=== PATIENT | male | born 1960 | race African-American/Black ===

== ENCOUNTER 2023-07-04 15:11 | Observation (INO) | payer OTHER ==
--- NOTE | 2023-07-04 15:46 | ED ---
General Adult HPI - General Source: patient, RN notes reviewed Mode of arrival: ambulatory Limitations: no limitations <Yordan Pierre - Last Filed: 07/04/23 15:42> - General Source: patient, RN notes reviewed Mode of arrival: ambulatory Limitations: no limitations <Camille Scott - Last Filed: 07/04/23 20:33> - General Stated complaint: renal faliure Time Seen by Provider: 07/04/23 15:42 - History of Present Illness Initial comments: 63-year-old male presents emergency Department with chief complaint leg swelling. Patient was sent in from [place]. Patient states that he has had this happen the past. He denies any chest pain but does have some shortness of breath. Patient denies any prior kidney issues or known congestive heart failure (Yordan Pierre) 63-year-old male presents to the emergency department for chief complaint of lower extremity edema. He states that this is been going on for the past 3 days but this is not the first time that he has experienced this. He was sent in from [place] for evaluation. He states that he was recently diagnosed with a right-sided lung mass but he has not been able to follow-up on this yet. He admits to shortness of breath with cough. He denies fever. Admits to night sweats. (Camille Scott) - Related Data Home Medications Medication Instructions Recorded Confirmed Acetaminophen Tab [Tylenol] 650 mg PO QID PRN 07/04/23 07/04/23 Chlorpheniramine Maleate 4 mg PO Q4H PRN 07/04/23 07/04/23 [Chlor-Trimeton] Cholecalciferol [Vitamin D3 (25 50 mcg PO DAILY@61407/04/23 07/04/23 Mcg = 1000 Iu)] Ferrous Sulfate [Feosol] 325 mg PO DAILY@61407/04/23 07/04/23 Loratadine [Claritin] 10 mg PO DAILY@61407/04/23 07/04/23 Losartan Potassium 100 mg PO DAILY@61407/04/23 07/04/23 OXcarbazepine [Trileptal] 150 mg PO BID@06,2100 07/04/23 07/04/23 Omeprazole 20 mg PO DAILY@61407/04/23 07/04/23 Sertraline [Zoloft] 50 mg PO DAILY@0615 07/04/23 07/04/23 Sertraline [Zoloft] 100 mg PO DAILY@0615 07/04/23 07/04/23 guaiFENesin [guaiFENesin Oral 200 mg PO Q4H PRN 07/04/23 07/04/23 Solution] hydroCHLOROthiazide [Hydrodiuril] 25 mg PO DAILY@0615 07/04/23 07/04/23 Allergies Allergy/AdvReac Type Severity Reaction Status Date / Time No Known Allergies Allergy Verified 07/04/23 19:41 Review of Systems ROS Other: All systems not noted in ROS Statement are negative. <Yordan Pierre - Last Filed: 07/04/23 15:42> ROS Other: All systems not noted in ROS Statement are negative. <Camille Scott - Last Filed: 07/04/23 20:33> ROS Statement: Those systems with pertinent positive or pertinent negative responses have been documented in the HPI. General Exam <Yordan Pierre - Last Filed: 07/04/23 15:42> Limitations: no limitations General appearance: alert, in no apparent distress Head exam: Present: atraumatic, normocephalic, normal inspection Eye exam: Present: normal appearance, PERRL, EOMI. Absent: scleral icterus, conjunctival injection, periorbital swelling <Camille Scott - Last Filed: 07/04/23 20:33> - General Exam Comments Initial Comments: Visual Physical Exam Vital signs reviewed General: Well-appearing, nontoxic, no acute distress. Head: Normocephalic, atraumatic Eyes: PERRLA, EOMI ENT: Airway patent Chest: Nonlabored breathing Skin: No visual rash, normal skin tone Neuro: Alert and oriented 3 Musculoskeletal: No gross abnormalities (Yordan Pierre) Course Vital Signs 07/04/23 15:48 Temperature 97.9 F Pulse Rate 67 Respiratory 16 Rate Blood Pressure 153/76 O2 Sat by Pulse 100 Oximetry Medical Decision Making <Yordan Pierre - Last Filed: 07/04/23 15:42> - Lab Data Result diagrams: 07/04/23 17:35 07/04/23 17:35 <Camille Scott - Last Filed: 07/04/23 20:33> - Medical Decision Making I completed the quick note portion of this chart signed Yordan Pierre PA-C (Yordan Pierre) Was pt. sent in by a medical professional or institution (SA[employer] Stuart, C[employer]TING TABLE [employer]ATOR [employer], urgent care, hospital, or group home...) When possible be specific @ -No Did you speak to anyone other than the patient for history (EMS, parent, family, police, friend...)? What history was obtained from this source @ -No Did you review nursing and triage notes (agree or disagree)? Why? @ -I reviewed and agree with nursing and triage notes Were old charts reviewed (outside hosp., previous admission, EMS record, old EKG, old radiological studies, urgent care reports/EKG's, group home records)? Report findings @ -No old charts were reviewed Differential Diagnosis (chest pain, altered mental status, abdominal pain women, abdominal pain men, vaginal bleeding, weakness, fever, dyspnea, syncope, headache, dizziness, GI bleed, back pain, seizure, CVA, palpatations, mental health, musculoskeletal)? @ -Differential Dyspnea: Coronary syndrome, arrhythmia, tamponade, asthma, COPD, pulmonary embolism, pneumonia, pneumothorax, pulmonary effusion, anaphylaxis, diabetic ketoacidosis, flailed chest, pulmonary contusion, diaphragmatic rupture, anemia, neuromuscular, this is not meant to be an all-inclusive list. EKG interpreted by me (3pts min.). @ -EKG at 1719 shows sinus rhythm rate 61, CT 161, QRS 89, QTQTc [id number] X-rays interpreted by me (1pt min.). @ -Chest x-ray shows right upper lobe mass measuring [address] interpreted by me (1pt min.). @ -None done U/S interpreted by me (1pt. min.). @ -None done What testing was considered but not performed or refused? (CT, X-rays, U/S, labs)? Why? @ -None What meds were considered but not given or refused? Why? @ -None Did you discuss the management of the patient with other professionals (professionals i.e. SAY Stuart, [employer]TING [employer], lab, RT, psych nurse, psychosocial rehabilitation counselor, motorcycle assembler, teacher, officer lieutenant, oil field caser)? Give summary @ -Dr. Rios discuss the case with discussed the case with Janet Ortega with [facility] who is accepting of the admission Was smoking cessation discussed for >3mins.? @ -No Was critical care preformed (if so, how long)? @ -No Were there social determinants of health that impacted care today? How? (Homelessness, low income, unemployed, alcoholism, drug addiction, transportation, low edu. Level, literacy, decrease access to med. care, [facility], rehab)? @ -No Was there de-escalation of care discussed even if they declined (Discuss DNR or withdrawal of care, Hospice)? DNR status @ -No What co-morbidities impacted this encounter? (DM, HTN, Smoking, COPD, CAD, Canc er, CVA, ARF, Chemo, Hep., AIDS, mental health diagnosis, sleep apnea, morbid obesity)? @ -None Was patient admitted / discharged? Hospital course, mention meds given and route, prescriptions, significant lab abnormalities, going to OR and other pertinent info. @ -Admitted. Patient presented to the emergency department with chief complaint of lower extremity edema. Patient was sent in by [place] for evaluation. Patient has a lung mass which she is aware of but has not had any follow-up on. Laboratory studies obtained which showed WBC 5.8, hemoglobin 9.9; CMP shows sodium 134, potassium 4.5, creatinine 0.59, troponin negative, BNP 233. Chest x-ray obtained which shows 8 cm right upper lobe mass. Patient has not had follow-up on this. Patient will be admitted for further workup. Patient is understanding and agreeable with plan. Case discussed with [facility] hospitalist who is accepting of the admission. Case discussed with Dr. Rios. Undiagnosed new problem with uncertain prognosis? @ -No Drug Therapy requiring intensive monitoring for toxicity (Heparin, Nitro, Insulin, Cardizem)? @ -No Were any procedures done? @ -No Diagnosis/symptom? @ -Right lung mass Acute, or Chronic, or Acute on Chronic? @ -Acute Uncomplicated (without systemic symptoms) or Complicated (systemic symptoms)? @ -Uncomplicated Side effects of treatment? @ -No Exacerbation, Progression, or Severe Exacerbation? @ -No Poses a threat to life or bodily function? How? (Chest pain, [place], [place], pneumonia, PE, COPD, DKA, ARF, appy, cholecystitis, CVA, Diverticulitis, Homicidal, Suicidal, threat to staff... and all critical care pts) @ -No ([email or web address]) - Lab Data Lab Results 07/04/23 07/04/23 07/04/23 Range/Units 17:35 17:35 18:37 WBC 5.8 (3.8-10.6) k/uL RBC 3.64 L (4.30-5.90) m/uL Hgb 9.9 L (13.0-17.5) gm/dL Hct 30.2 L (39.0-53.0) % MCV 82.8 (80.0-100.0) fL MCH 27.1 (25.0-35.0) pg MCHC 32.8 (31.0-37.0) g/dL RDW 16.1 H (11.5-15.5) % Plt Count 445 (150-450) k/uL MPV 6.7 Neutrophils % 65 % Lymphocytes % 21 % Monocytes % 7 % Eosinophils % 2 % Basophils % 0 % Neutrophils # 3.8 (1.3-7.7) k/uL Lymphocytes # 1.2 (1.0-4.8) k/uL Monocytes # 0.4 (0-1.0) k/uL Eosinophils # 0.1 (0-0.7) k/uL Basophils # 0.0 (0-0.2) k/uL Hypochromasia Slight Anisocytosis Slight PT (10.0-12.5) sec INR (<1.2) APTT (22.0-30.0) sec Sodium 134 L (137-145) mmol/L Potassium 4.5 (3.5-5.1) mmol/L Chloride 98 (98-107) mmol/L Carbon Dioxide 26 (22-30) mmol/L Anion Gap 10 mmol/L BUN 15 (9-20) mg/dL Creatinine 0.59 L (0.66-1.25) mg/dL Est GFR (CKD-EPI)AfAm >90 (>60 ml/min/1.73 sqM) Est GFR (CKD-EPI)NonAf >90 (>60 ml/min/1.73 sqM) Glucose 99 (74-99) mg/dL Calcium 9.5 (8.4-10.2) mg/dL Magnesium 1.9 (1.6-2.3) mg/dL Total Bilirubin 0.3 (0.2-1.3) mg/dL AST 18 (17-59) U/L ALT 9 (4-49) U/L Alkaline Phosphatase 109 (38-126) U/L Troponin I <0.012 (0.000-0.034) ng/mL NT-Pro-B Natriuret Pep 233 pg/mL Total Protein 7.0 (6.3-8.2) g/dL Albumin 3.6 (3.5-5.0) g/dL 07/04/23 Range/Units 19:24 WBC (3.8-10.6) k/uL RBC (4.30-5.90) m/uL Hgb (13.0-17.5) gm/dL Hct (39.0-53.0) % MCV (80.0-100.0) fL MCH (25.0-35.0) pg MCHC (31.0-37.0) g/dL RDW (11.5-15.5) % Plt Count (150-450) k/uL MPV Neutrophils % % Lymphocytes % % Monocytes % % Eosinophils % % Basophils % % Neutrophils # (1.3-7.7) k/uL Lymphocytes # (1.0-4.8) k/uL Monocytes # (0-1.0) k/uL Eosinophils # (0-0.7) k/uL Basophils # (0-0.2) k/uL Hypochromasia Anisocytosis PT 10.7 (10.0-12.5) sec INR 1.0 (<1.2) APTT 19.2 L (22.0-30.0) sec Sodium (137-145) mmol/L Potassium (3.5-5.1) mmol/L Chloride (98-107) mmol/L Carbon Dioxide (22-30) mmol/L Anion Gap mmol/L BUN (9-20) mg/dL Creatinine (0.66-1.25) mg/dL Est GFR (CKD-EPI)AfAm (>60 ml/min/1.73 sqM) Est GFR (CKD-EPI)NonAf (>60 ml/min/1.73 sqM) Glucose (74-99) mg/dL Calcium (8.4-10.2) mg/dL Magnesium (1.6-2.3) mg/dL Total Bilirubin (0.2-1.3) mg/dL AST (17-59) U/L ALT (4-49) U/L Alkaline Phosphatase (38-126) U/L Troponin I (0.000-0.034) ng/mL NT-Pro-B Natriuret Pep pg/mL Total Protein (6.3-8.2) g/dL Albumin (3.5-5.0) g/dL Disposition <Yordan Pierre - Last Filed: 07/04/23 15:42> Is patient prescribed a controlled substance at d/c from ED?: No <Camille Scott - Last Filed: 07/04/23 20:33> Clinical Impression: Mass of upper lobe of right lung, Lower extremity edema Disposition: ADMITTED IP TO THIS HOSP Condition: Stable Referrals: None,Stated [Primary Care Provider] - 1-2 days
[2023-07-04 17:49] LABS: Anisocytosis Slight; Basophils % (A) 0 %; Eosinophils # (A) 0.1 k/uL (0-0.7); Eosinophils % (A) 2 %; HCT 30.2 % (39.0-53.0); HGB 9.9 gm/dL (13.0-17.5); Hypochromasia Slight; Lymphocytes # (A) 1.2 k/uL (1.0-4.8); Lymphocytes % (A) 21 %; MCH 27.1 pg (25.0-35.0); MCHC 32.8 g/dL (31.0-37.0); MCV 82.8 fL (80.0-100.0); Mean Platelet Volume 6.7; Monocytes # (A) 0.4 k/uL (0-1.0); Monocytes % (A) 7 %; Neutrophils # (A) 3.8 k/uL (1.3-7.7); Neutrophils % (A) 65 %; Platelet Count 445 k/uL (150-450); RBC 3.64 m/uL (4.30-5.90); RDW 16.1 % (11.5-15.5); WBC 5.8 k/uL (3.8-10.6)
--- NOTE | 2023-07-04 18:01 | XR ---
EXAMINATION: XR chest 2V: 07/04/2023 5:43 PM CLINICAL INDICATION: sob TECHNIQUE: Departmental protocol COMPARISON: None FINDINGS: There is a 8 cm RUL mass abutting the superior mediastinum, consistent with bronchogenic carcinoma un til proven otherwise. There is no midline shift of structures. Recommend CT chest with IV contrast. There are no other lung parenchymal findings. Pleural spaces are negative. The cardiac silhouette is not enlarged; remainder of the hilar/mediastinal silhouette is unremarkable . The skeletal structures and soft tissues are negative for acute findings. Covering ED clinician notified of results via phone discussion just now, in order to help expedite ma [facility] decision making. IMPRESSION: 8 cm RUL mass consistent with bronchogenic carcinoma until proven otherwise.
[2023-07-04 18:02] LABS: ALT 9 U/L (4-49); AST 18 U/L (17-59); African American GFR (CKD) >90 (>60 ml/min/1.73 sqM); Albumin 3.6 g/dL (3.5-5.0); Alkaline Phosphatase 109 U/L (38-126); Anion Gap 10 mmol/L; Blood Urea Nitrogen 15 mg/dL (9-20); Calcium 9.5 mg/dL (8.4-10.2); Carbon Dioxide 26 mmol/L (22-30); Chloride 98 mmol/L (98-107); Glucose 99 mg/dL (74-99); Magnesium 1.9 mg/dL (1.6-2.3); Non-African American GFR(CKD) >90 (>60 ml/min/1.73 sqM); Potassium 4.5 mmol/L (3.5-5.1); Sodium 134 mmol/L (137-145); Total Bilirubin 0.3 mg/dL (0.2-1.3)
[2023-07-04 18:09] LABS: NT-Pro-B-Type Natriuretic Pept 233 pg/mL
[2023-07-04 20:09] LABS: Prothrombin Time 10.7 sec (10.0-12.5)
[2023-07-04 20:16] LABS: Partial Thromboplastin Time 19.2 sec (22.0-30.0)
[2023-07-04] MEDS ORDERED: KETOROLAC 15 MG/ML 1 ML VIAL IVP PRN (20:21)
[2023-07-04] MEDS ORDERED: ACETAMINOPHEN TAB 325 MG TAB PO PRN (20:21)
[2023-07-04] MEDS ORDERED: NALOXONE 0.4 MG/ML 1 ML VIAL IV PRN (20:21)
[2023-07-04] MEDS ORDERED: IBUPROFEN 400 MG TAB PO PRN (20:21)
[2023-07-04] MEDS ORDERED: SODIUM CHLORIDE 0.9% 1,000 ML IV SCH (20:30)
[2023-07-04] MEDS: SODIUM CHLORIDE 0.9% 1,000 ML IV SCH (21:12)
[2023-07-05 04:35] VITALS: TEMP 98.2
[2023-07-05] MEDS ORDERED: guaiFENesin SYRUP 100MG/5ML 200 MG/10 ML CUP PO PRN (06:36)
[2023-07-05] MEDS ORDERED: diphenhydrAMINE 25 MG CAP PO PRN (06:36)
[2023-07-05] MEDS ORDERED: SERTRALINE 100 MG TAB PO SCH (06:59)
[2023-07-05] MEDS ORDERED: SERTRALINE 50 MG TAB PO SCH (06:59)
[2023-07-05] MEDS ORDERED: OXcarbazepine 150 MG TAB PO SCH (06:59)
[2023-07-05 09:27] VITALS: RESP 18
--- NOTE | 2023-07-05 10:18 | CT ---
EXAMINATION: CT CHEST, ABDOMEN AND PELVIS WITH IV CONTRAST DATE OF EXAMINATION: 07/05/2023. COMPARISON: Chest x-ray on 07/04/2023. INDICATION: Lung mass. Malignancy suspected. PROCEDURE: Axial CT of the chest, abdomen and pelvis was performed following the intravenous adminis tration of 100 ml Isovue 300. Coronal and sagittal reformats were performed. CT dose lowering techni ques were used, to include: automated exposure control, adjustment for patient size, and/or use of it erative reconstruction. FINDINGS: CHEST: Mediastinum and Caitie: Right upper lobe mass will be described in the lungs section as it does extend into the upper mediastinum. Pleural and Pericardial spaces: There are no pleural or pericardial effusions. Cardiovascular: The thoracic aorta is normal in size without evidence of aneurysm or dissection. Mild patchy coronary artery calcifications are seen. Pulmonary Artery: There are no central pulmonary arterial filling defects. Lung Parenchyma and Airways: There is a large irregular right upper lobe mass measuring 8.2 x 6.9 cm that extends into the upper mediastinum and abuts the right paratracheal region. There is subpleural reticulation seen within the posterior dependent lung bases which is likely atelectasis. The lungs ot herwise appear clear. ABDOMEN: Liver and Biliary system: Normal. Adrenal glands: 2.7 cm left adrenal nodule suspicious for metastasis. The right adrenal is unremarka ble. Kidneys and ureters: Normal. Spleen: Normal. Pancreas: Normal. Gallbladder: Normal. Lymph nodes, Peritoneum and mesentery: There is no mesenteric or retroperitoneal lymphadenopathy. Gastrointestinal tract: There are no dilated loops of bowel or free intraperitoneal air. . The appe ndix is normal. Aorta/IVC: There is moderate vascular calcification throughout the abdominal aorta without evidence of aneurysmal dilation or dissection. IVC normal. Abdominal wall: Normal. PELVIS: Fluid: There is a small amount of pelvic ascites Lymph Nodes: There is no pelvic or inguinal lymphadenopathy.. Urinary bladder: Normal. BONES: There are no osseous destructive lesions.. ADDITIONAL SIGNIFICANT FINDINGS: None. IMPRESSION: 1. Large right upper lobe mass ane suprahilar mass with extension into the mediastinum as above is co mpatible with malignancy. 2. Left adrenal nodule is suspicious for a metastasis. 3. Small amount of pelvic ascites. 4. Additional incidental changes noted above.
[2023-07-05] MEDS: SODIUM CHLORIDE 0.9% 1,000 ML IV SCH (11:22)
--- NOTE | 2023-07-05 12:10 | P.HPIM ---
History of Present Illness H&P Date: 07/05/23 Chief Complaint: Bilateral leg edema * 63-year-old gentleman with past medical history significant for depression, iron deficiency anemia, hypertension who was sent in from [place] for complains of leg swelling as well as shortness of breath. Patient was noted to have worsening lower extremity edema ongoing for 72 hours, he was sent in from [place] for evaluation patient said he has been diagnosed with a lung mass however he has not had a follow-up further. He does complain of shortness of breath and cough. * Workup in ER included hepatology which were WBC of 5.8 hemoglobin 9.9 platelet count of 445, coagulation studies show INR of 1 PT 10.7 * Serum chemistry sodium 134 potassium 4.5 BUNs 15 creatinine 0.59, troponin 0.012, within normal limits * N-terminal proBNP within normal limits albumin of 3.6 liver profile within normal limits * Patient was placed under observation with consultation from pulmonary medicine ordered. Workup for lung mass was initiated including CT abdomen/pelvis and CT chest. However patient will need to follow-up with his primary provider for referral for oncology and biopsy patient follows up with providers in [place]. REVIEW OF SYSTEMS: Lower extremity edema, shortness of breath on admission CONSTITUTIONAL: No fever, no malaise, no fatigue. HEENT: No recent visual problems or hearing problems. Denied any sore throat. CARDIOVASCULAR: No chest pain, orthopnea, PND, no palpitations, no syncope. PULMONARY: No shortness of breath, no cough, no hemoptysis. GASTROINTESTINAL: No diarrhea, no nausea, no vomiting, no abdominal pain. NEUROLOGICAL: No headaches, no weakness, no numbness. HEMATOLOGICAL: Denies any bleeding or petechiae. GENITOURINARY: Denies any burning micturition, frequency, or urgency. MUSCULOSKELETAL/RHEUMATOLOGICAL: Denies any joint pain, swelling, or any muscle pain. ENDOCRINE: Denies any polyuria or polydipsia. PHYSICAL EXAMINATION: GENERAL: The patient is alert and oriented x3, not in any acute distress. Well developed, no leg edema noted HEENT: Pupils are round and equally reacting to light. EOMI. No scleral icterus. CARDIOVASCULAR: S1 and S2 present. No murmurs, rubs, or gallops. PULMONARY: Chest is clear to auscultation, no wheezing or crackles. ABDOMEN: Soft, nontender, nondistended, normoactive bowel sounds. No palpable organomegaly. MUSCULOSKELETAL: No joint swelling or deformity., No calf tenderness EXTREMITIES: No cyanosis, clubbing, or pedal edema. NEUROLOGICAL: Gross neurological examination did not reveal any focal deficits. SKIN: No rashes. Past Medical History Past Medical History: Hypertension History of Any Multi-Drug Resistant Organisms: None Reported Past Surgical History: Orthopedic Surgery Additional Past Surgical History / Comment(s): neck surgery Past Psychological History: Bipolar, Depression Smoking Status: Current every day smoker Past Alcohol Use History: Abuse, Daily Past Drug Use History: Cocaine, Marijuana Medications and Allergies Home Medications Medication Instructions Recorded Confirmed Type Acetaminophen Tab [Tylenol] 650 mg PO QID PRN 07/04/23 07/04/23 History Chlorpheniramine Maleate 4 mg PO Q4H PRN 07/04/23 07/04/23 History [Chlor-Trimeton] Cholecalciferol [Vitamin D3 (25 50 mcg PO DAILY@61407/04/23 07/04/23 History Mcg = 1000 Iu)] Ferrous Sulfate [Feosol] 325 mg PO DAILY@0615 07/04/23 07/04/23 History Loratadine [Claritin] 10 mg PO DAILY@15 07/04/23 07/04/23 History Losartan Potassium 100 mg PO DAILY@15 07/04/23 07/04/23 History OXcarbazepine [Trileptal] 150 mg PO BID@0615,2100 07/04/23 07/04/23 History Omeprazole 20 mg PO DAILY@0615 07/04/23 07/04/23 History Sertraline [Zoloft] 50 mg PO DAILY@0615 07/04/23 07/04/23 History Sertraline [Zoloft] 100 mg PO DAILY@0615 07/04/23 07/04/23 History guaiFENesin [guaiFENesin Oral 200 mg PO Q4H PRN 07/04/23 07/04/23 History Solution] hydroCHLOROthiazide [Hydrodiuril] 25 mg PO DAILY@0615 07/04/23 07/04/23 History Allergies Allergy/AdvReac Type Severity Reaction Status Date / Time No Known Allergies Allergy Verified 07/04/23 19:41 Physical Exam Vitals: Vital Signs Temp Pulse Pulse Resp BP Pulse Ox 07/05/23 08:00 62 18 140/84 98 07/05/23 04:00 98.2 F 75 16 137/86 100 07/05/23 02:00 68 07/04/23 23:10 98.5 F 73 16 135/76 99 07/04/23 22:00 73 16 171/87 97 07/04/23 20:43 98.7 F 66 18 171/87 99 07/04/23 15:48 97.9 F 67 16 153/76 100 Intake and Output 07/04/23 07/05/23 07/05/23 22:59 06:59 14:59 Intake Total 525 Output Total 200 Balance 325 Intake: Intake, IV Titration 525 Amount Sodium Chloride 0.9% 1, 525 000 ml @ 75 mls/hr IV . [id number] [facility] Rx#:[id number] Output: Urine 200 Other: Weight 68.039 kg Results CBC & Chem 7: 07/04/23 17:35 07/04/23 17:35 Labs: Abnormal Lab Results - Last 24 Hours (Table) 07/04/23 07/04/23 07/04/23 Range/Units 17:35 17:35 19:24 RBC 3.64 L (4.30-5.90) m/uL Hgb 9.9 L (13.0-17.5) gm/dL Hct 30.2 L (39.0-53.0) % RDW 16.1 H (11.5-15.5) % APTT 19.2 L (22.0-30.0) sec Sodium 134 L (137-145) mmol/L Creatinine 0.59 L (0.66-1.25) mg/dL Assessment and Plan Assessment: Assessment and plan * History of lung mass right upper lobe with suspicion for bronchogenic carcinoma * Hypertension * History of depression * Gastroesophageal reflux disease * Iron deficiency anemia * In regards to history of lung mass, 8 cm mass noted in the superior midaspect no raising suspicion for bronchogenic carcinoma, no midline shift noted, CT chest abdomen pelvis initiated in ER however patient will need outpatient follow-up with her primary care provider and oncology as well as pulmonary medicine. Patient is from [place] and will need to follow-up with his providers there * In regards to history of depression continue patient on Zoloft * In regards to iron deficiency anemia continue ferrous sulfate * CODE STATUS is full code Time with Patient: Greater than 30
--- NOTE | 2023-07-05 12:17 | P.DS ---
Providers Date of admission: 07/04/23 20:21 Expected date of discharge: 07/05/23 Attending physician: Neeru Graham Consults: 07/04/23 20:21 Consult Physician Routine Consulting Provider: Matthew Aviles Reason/Comments: lung mass Do you want consulting provider notified?: Yes, Notify in am Primary care physician: Stated None Hospital Course: * 63-year-old gentleman with past medical history significant for depression, iron deficiency anemia, hypertension who was sent in from [place] for complains of leg swelling as well as shortness of breath. Patient was noted to have worsening lower extremity edema ongoing for 72 hours, he was sent in from [place] for evaluation patient said he has been diagnosed with a lung mass however he has not had a follow-up further. He does complain of shortness of breath and cough. * Workup in ER included hepatology which were WBC of 5.8 hemoglobin 9.9 platelet count of 445, coagulation studies show INR of 1 PT 10.7 * Serum chemistry sodium 134 potassium 4.5 BUNs 15 creatinine 0.59, troponin 0.012, within normal limits * N-terminal proBNP within normal limits albumin of 3.6 liver profile within normal limits * Patient was placed under observation with consultation from pulmonary medicine ordered. Workup for lung mass was initiated including CT abdomen/pelvis and CT chest. However patient will need to follow-up with his primary provider for referral for oncology and biopsy patient follows up with providers in [place]. * While waiting in ED patient had a CT chest abdomen and pelvis completed which showed a large irregular upper lobe mass 8.2 x 6.9 cm, left vaginal nodule noted as well * Findings were discussed with patient regarding concern for malignancy and outpatient follow-up with primary care physician and need for biopsy and follow-up with oncology * Patient remains stable at this time, serial troponins were done which were negative, patient remains on room air chest pain-free * Seen by pulmonary medicine during the hospital stay as well PHYSICAL EXAMINATION: GENERAL: The patient is alert and oriented x3, not in any acute distress. Well developed, no leg edema noted HEENT: Pupils are round and equally reacting to light. EOMI. No scleral icterus. CARDIOVASCULAR: S1 and S2 present. No murmurs, rubs, or gallops. PULMONARY: Chest is clear to auscultation, no wheezing or crackles. ABDOMEN: Soft, nontender, nondistended, normoactive bowel sounds. No palpable organomegaly. MUSCULOSKELETAL: No joint swelling or deformity., No calf tenderness EXTREMITIES: No cyanosis, clubbing, or pedal edema. NEUROLOGICAL: Gross neurological examination did not reveal any focal deficits. Assessment: Assessment and plan * History of lung mass right upper lobe with suspicion for metastatic lung cancer * For whole use disorder * Hypertension * History of depression * Gastroesophageal reflux disease * Iron deficiency anemia * In regards to history of lung mass, 8 cm mass noted in the superior midaspect no raising suspicion for bronchogenic carcinoma, no midline shift noted, CT chest abdomen pelvis completed in ER however patient will need outpatient follow-up with her primary care provider and oncology as well as pulmonary medicine in [place] * Patient is from [place] and will need to follow-up with his providers there, he was at [place] for alcohol use disorder * In regards to history of depression continue patient on Zoloft * In regards to iron deficiency anemia continue ferrous sulfate * Instructions provided to follow-up with his primary care provider's, clear instructions given her need for lung biopsy since we suspect this is a metastatic malignancy Patient Condition at Discharge: Fair Plan - Discharge Summary New Discharge Prescriptions: Continue Sertraline [Zoloft] 100 mg PO DAILY@0615 Sertraline [Zoloft] 50 mg PO DAILY@0615 Losartan Potassium 100 mg PO DAILY@0615 Loratadine [Claritin] 10 mg PO DAILY@0615 hydroCHLOROthiazide [Hydrodiuril] 25 mg PO DAILY@0615 Cholecalciferol [Vitamin D3 (25 Mcg = 1000 Iu)] 50 mcg PO DAILY@0615 Acetaminophen Tab [Tylenol] 650 mg PO QID PRN PRN Reason: Pain Or Fever > 100.5 Omeprazole 20 mg PO DAILY@0615 OXcarbazepine [Trileptal] 150 mg PO BID@0615,2100 guaiFENesin [guaiFENesin Oral Solution] 200 mg PO Q4H PRN PRN Reason: Cough Ferrous Sulfate [Iron (65 MG Elemental)] 325 mg PO DAILY@0615 Chlorpheniramine Maleate [Chlor-Trimeton] 4 mg PO Q4H PRN PRN Reason: WITHDRAWL SYMPTOMS Discharge Medication List Acetaminophen Tab [Tylenol] 650 mg PO QID PRN 07/04/23 [History] Chlorpheniramine Maleate [Chlor-Trimeton] 4 mg PO Q4H PRN 07/04/23 [History] Cholecalciferol [Vitamin D3 (25 Mcg = 1000 Iu)] 50 mcg PO DAILY@61407/04/23 [History] Ferrous Sulfate [Iron (65 MG Elemental)] 325 mg PO DAILY@61407/04/23 [History] Loratadine [Claritin] 10 mg PO DAILY@61407/04/23 [History] Losartan Potassium 100 mg PO DAILY@61407/04/23 [History] OXcarbazepine [Trileptal] 150 mg PO BID@07/04/23 [History] Omeprazole 20 mg PO DAILY@61407/04/23 [History] Sertraline [Zoloft] 50 mg PO DAILY@61407/04/23 [History] Sertraline [Zoloft] 100 mg PO DAILY@61407/04/23 [History] guaiFENesin [guaiFENesin Oral Solution] 200 mg PO Q4H PRN 07/04/23 [History] hydroCHLOROthiazide [Hydrodiuril] 25 mg PO DAILY@61407/04/23 [History] Follow up Appointment(s)/Referral(s): None,Stated [Primary Care Provider] - 3 Days (Follow-up with your primary care provider as soon as possible in [place], you will need lung biopsy and follow-up for suspected lung cancer, suspect metastatic disease) Activity/Diet/Wound Care/Special Instructions: Follow-up with your primary care provider as soon as possible in [place], you will need lung biopsy and follow-up for suspected lung cancer, suspect metastatic disease. Discharge Disposition: HOME SELF-CARE
--- NOTE | 2023-07-05 14:54 | P.CNPUL ---
History of Present Illness Consult date: 07/05/23 Requesting physician: Neeru Graham Reason for consult: dyspnea, abnormal CXR/CT Chief complaint: Shortness of breath, lower extremity edema History of present illness: This is a 63-year-old male patient with a 45 year pack per day smoking history, depression, alcohol and drug addiction and was currently in [facility] when he had developed shortness of breath and increased lower extremity edema. He was sent here to the emergency room yesterday for evaluation. Chest x-ray reveals an 8 cm right upper lobe mass consistent with bronchogenic carcinoma. Computed tomography scan of the chest abdomen pelvis revealed a large right upper lobe mass and suprahilar mass with extension into the mediastinum compatible with malignancy. Left adrenal nodule suspicious for metastasis. White count 5.8. Hemoglobin 9.9. Platelets 445. Sodium 134. Potassium 4.5. Bicarb 26. BUN 15. Creatinine 0.59. Troponin negative 2. BNP 233. The patient is seen today in consultation in the emergency department. He is currently sitting up in a stretcher. Awake and alert in no acute distress. He is maintaining good O2 saturations up to 100% on 4 L nasal cannula. He's been afebrile. Hemodynamically stable. Denies hemoptysis. He states he was told about a lung mass by his physician in [place]. No workup thus far. Review of Systems REVIEW OF SYSTEMS: CONSTITUTIONAL: Denies any recent significant weight loss or weight gain. EYES: Denies change in vision. EARS, NOSE, MOUTH, THROAT: Denies headaches, denies sore throat. CARDIOVASCULAR: Denies chest pain, palpitations or syncopal episodes. RESPIRATORY: Positive for shortness of breath, no cough, congestion or hemoptysis. GASTROINTESTINAL: Denies change in appetite, denies abdominal pain GENITOURINARY: Denies hematuria, denies infections. MUSKULOSKELETAL: Positive for lower extremity swelling. INTEGUMENTARY: Denies rash, denies eczema. NEUROLOGICAL: Denies recent memory loss, no recent seizure activity. PSYCHIATRIC: Denies anxiety, denies depression. HEMATOLOGIC/LYMPHATIC: Denies anemia, denies enlarged lymph nodes. Past Medical History Past Medical History: Hypertension History of Any Multi-Drug Resistant Organisms: None Reported Past Surgical History: Orthopedic Surgery Additional Past Surgical History / Comment(s): neck surgery Past Psychological History: Bipolar, Depression Smoking Status: Current every day smoker Past Alcohol Use History: Abuse, Daily Past Drug Use History: Cocaine, Marijuana Medications and Allergies Home Medications Medication Instructions Recorded Confirmed Type Acetaminophen Tab [Tylenol] 650 mg PO QID PRN 07/04/23 07/04/23 History Chlorpheniramine Maleate 4 mg PO Q4H PRN 07/04/23 07/04/23 History [Chlor-Trimeton] Cholecalciferol [Vitamin D3 (25 50 mcg PO DAILY@61407/04/23 07/04/23 History Mcg = 1000 Iu)] Ferrous Sulfate [Iron (65 MG 325 mg PO DAILY@61407/04/23 07/04/23 History Elemental)] Loratadine [Claritin] 10 mg PO DAILY@61407/04/23 07/04/23 History Losartan Potassium 100 mg PO DAILY@61407/04/23 07/04/23 History OXcarbazepine [Trileptal] 150 mg PO BID@07/04/23 07/04/23 History Omeprazole 20 mg PO DAILY@61407/04/23 07/04/23 History Sertraline [Zoloft] 50 mg PO DAILY@61407/04/23 07/04/23 History Sertraline [Zoloft] 100 mg PO DAILY@61407/04/23 07/04/23 History guaiFENesin [guaiFENesin Oral 200 mg PO Q4H PRN 07/04/23 07/04/23 History Solution] hydroCHLOROthiazide [Hydrodiuril] 25 mg PO DAILY@61407/04/23 07/04/23 History Allergies Allergy/AdvReac Type Severity Reaction Status Date / Time No Known Allergies Allergy Verified 07/04/23 19:41 Physical Exam Vitals: Vital Signs Temp Pulse Pulse Resp BP Pulse Ox 07/05/23 08:00 62 18 140/84 98 07/05/23 04:00 98.2 F 75 16 137/86 100 07/05/23 02:00 68 07/04/23 23:10 98.5 F 73 16 135/76 99 07/04/23 22:00 73 16 171/87 97 07/04/23 20:43 98.7 F 66 18 171/87 99 07/04/23 15:48 97.9 F 67 16 153/76 100 Intake and Output 07/04/23 07/05/23 07/05/23 22:59 06:59 14:59 Intake Total 525 Output Total 200 200 Balance 325 -200 Intake: Intake, IV Titration 525 Amount Sodium Chloride 0.9% 1, 525 000 ml @ 75 mls/hr IV . [id number] [facility] Rx#:[id number] Output: Urine 200 200 Other: Weight 68.039 kg GENERAL EXAM: Alert, oriented 63-year-old male, on room air, comfortable in no apparent distress. HEAD: Normocephalic. EYES: Normal reaction of pupils, equal size. NOSE: Clear with pink turbinates. THROAT: No erythema or exudates. NECK: No masses, no JVD. CHEST: No chest wall deformity. LUNGS: Equal air entry with no crackles, wheeze, rhonchi or dullness. CVS: S1 and S2 normal with no audible murmur, regular rhythm. ABDOMEN: No hepatosplenomegaly, normal bowel sounds, no guarding or rigidity. SPINE: No scoliosis or deformity SKIN: No rashes CENTRAL NERVOUS SYSTEM: No focal deficits, tone is normal in all 4 extremities. EXTREMITIES: There is one plus peripheral edema. No clubbing, no cyanosis. Peripheral pulses are intact. Results - Laboratory Findings CBC and BMP: 07/04/23 17:35 07/04/23 17:35 PT/INR, D-dimer PT 10.7 sec (10.0-12.5) 07/04/23 19:24 INR 1.0 (<1.2) 07/04/23 19:24 Abnormal lab findings: Abnormal Labs 07/04/23 07/04/23 07/04/23 17:35 17:35 19:24 RBC 3.64 L Hgb 9.9 L Hct 30.2 L RDW 16.1 H APTT 19.2 L Sodium 134 L Creatinine 0.59 L - Diagnostic Findings Chest x-ray: image reviewed CT scan - chest: image reviewed Assessment and Plan Assessment: Large irregular right upper lobe mass measuring 8.2 x 6.9 that extends in the upper mediastinum and abuts the right paratracheal region. Left adrenal nodule suspicious for metastasis Shortness of breath suspect secondary to above Chronic and ongoing tobacco dependence of 45 years History of heavy daily alcohol use History of drug abuse History of depression Hypertension Plan: The patient was seen and evaluated Chest x-ray, computed tomography scan of the chest abdomen pelvis, labs and medications reviewed The patient is currently stable and on room air Could be discharged back to [place] [facility] Encouraged to follow-up with his physicians in [place] for continued workup regarding suspected lung cancer I have personally seen and examined the patient, performed the documentation and the assessment and plan as written. Number of minutes spent on the visit: 20.
[2023-07-05 17:04] VITALS: BP 128/62; PULSE 80
[2023-07-06] MEDS ORDERED: LORATADINE 10 MG TAB PO SCH (06:15)
[2023-07-06] MEDS ORDERED: hydroCHLOROthiazide 25 MG TAB PO SCH (06:15)
[2023-07-06] MEDS ORDERED: LOSARTAN 50 MG TAB PO SCH (06:15)
[2023-07-06] MEDS ORDERED: FERROUS SULFATE 325 MG TAB PO SCH (06:15)
[2023-07-06] MEDS ORDERED: PANTOPRAZOLE 40 MG TABLET PO SCH (06:15)
[2023-07-06] MEDS ORDERED: CHOLECALCIFEROL 25 MCG (1000 IU) TABLET PO SCH (06:15)
== END 2023-07-05 16:42 | disposition home or self-care (01) ==
LOC: EC 15:11 → 6NMEDSUR 20:21
PROVIDERS: ADMIT Hospitalist; ATTEND Hospitalist
DX: R91.8 Other nonspecific abnormal finding of lung field (principal); R60.0 Localized edema; R06.02 Shortness of breath; R05.9 Cough, unspecified; R61 Generalized hyperhidrosis; E27.9 Disorder of adrenal gland, unspecified; D50.9 Iron deficiency anemia, unspecified; I10 Essential (primary) hypertension; F31.9 Bipolar disorder, unspecified; K21.9 Gastro-esophageal reflux disease without esophagitis; F17.210 Nicotine dependence, cigarettes, uncomplicated; F10.20 Alcohol dependence, uncomplicated; F19.20 Other psychoactive substance dependence, uncomplicated; Z79.899 Other long term (current) drug therapy; Z71.6 Tobacco abuse counseling
CPT/HCPCS: 96374; 99285; 36415; 93005; 83880; 80053; 83735; 84484 ×2; 85025; 85610; 85730; 71046; 71260; 74177; G0378; J1885; Q9967